=== PATIENT | male | born 1950 | race Caucasian/White ===

== ENCOUNTER 2020-01-30 16:45 | Emergency (ER) | payer OTHER ==
[~2020-01-30] VITALS: Ht 167.6 cm; Wt 86.2 kg
[2020-01-30 16:47] VITALS: Ht 167.6 cm; Wt 86.2 kg
[2020-01-30 18:56] VITALS: BP 145/78
== END 2020-01-30 18:56 | disposition home or self-care (01) ==
LOC: ED 16:45
DX: J40 Bronchitis, not specified as acute or chronic (principal); Z20.828 Contact with and (suspected) exposure to other viral communicable diseases; K74.60 Unspecified cirrhosis of liver
CPT/HCPCS: Q0092